=== PATIENT | female | born 1950 | race Two or more races ===

== ENCOUNTER → 2019-02-09 | Outpatient (CLI) | payer BC ==
[2015-10-03 12:03] VITALS: BP 145/74
[~2019-02-09] MED LIST: CHOL2000 PO; CIPR250T PO; ESTR0.45 PO; EXEN10PE3 SQ; HYDR115S2 PO; INSU100V8 SQ; INSU200I SQ; LOSA25TA54 PO; METF500T16 PO; MIRA25TA PO
--- NOTE | 2019-02-09 11:47 | RAD ---
MR of the right elbow HISTORY: Left lateral elbow pain for 2 months. No known injury. TECHNIQUE: Routine multiplanar sequences are obtained. FINDINGS: Biceps and brachialis tendons are intact. Triceps tendon attachment is intact. The common flexor tendon demonstrates mild tendinosis. Ulnar collateral ligament is intact. Partial tear of the common extensor tendon, involving roughly 70% of the footplate attachment. The proximal lateral collateral ligament complex is also poorly defined, likely torn. No aggressive bone destruction. No acute fracture. No significant joint effusion. Ulnar nerve appears unremarkable. IMPRESSION: 1. High-grade tear of the common extensor tendon attachment, also appears to involve proximal lateral collateral ligament complex. 2. Mild common flexor tendinosis. Electronically signed by: John Alfred MD (02/09/2019 11:44 AM) [id number]
== END | disposition home or self-care (01) ==
LOC: MRI 09:44
PROVIDERS: ATTEND Orthopaedic Surgery
DX: S56.512A Strain of other extensor muscle, fascia and tendon at forearm level, left arm, initial encounter (principal); M77.8 Other enthesopathies, not elsewhere classified; X58.XXXA Exposure to other specified factors, initial encounter; Y93.89 Activity, other specified; Y92.89 Other specified places as the place of occurrence of the external cause; Y99.8 Other external cause status
CPT/HCPCS: 73221

== ENCOUNTER 2019-04-15 14:43 | Emergency (ER) | payer BC ==
[~2019-04-15] VITALS: Ht 157.5 cm; Wt 72.6 kg
[2019-04-15 16:00] VITALS: BP 197/85
[2019-04-15] MEDS ORDERED: HYDROcodone/APAP 5/325MG 1 TAB TABLET PO ONE (16:00)
[2019-04-15] MEDS ORDERED: ONDANSETRON ODT 4 MG TAB.RAPDIS. PO ONE (16:00)
--- NOTE | 2019-04-15 16:04 | PHYS DOC ---
Past Medical History Past Medical History: Diabetes-Type I, Hypertension Past Surgical History: Hysterectomy Additional Past Surgical Histo: tubal ligation, adwoa breast reconstraction Alcohol Use: Rarely Drug Use: None Adult General Chief Complaint Chief Complaint: FINGER INJURY HPI HPI Patient is a 69 year old female presents to the ED complaining of finger injury times one day ago. Patient states she was pulling a heavy door shut and accidentally smashed her second, third and fourth fingers. Describes the pain as sharp. Rates pain as 8 out of 10. She has pain with flexion. Denies nailbed injury, laceration, weakness, paresthesias, chest pain or shortness of breath. Review of Systems Review of Systems Constitutional: Denies fever or chills [] Eyes: Denies change in visual acuity, redness, or eye pain [] HENT: Denies nasal congestion or sore throat [] Respiratory: Denies cough or shortness of breath [] Cardiovascular: No additional information not addressed in HPI [] GI: Denies abdominal pain, nausea, vomiting, bloody stools or diarrhea [] : Denies dysuria or hematuria [] Musculoskeletal: Complains of finger pain. Denies back pain. Integument: Denies rash or skin lesions [] Neurologic: Denies headache, focal weakness or sensory changes [] All other systems were reviewed and found to be within normal limits, except as documented in this note. Current Medications Current Medications Current Medications Medications (Trade) Dose Ordered Sig/Lea Start Time Stop Time Status Last Admin Dose Admin Acetaminophen/ Hydrocodone Bitart (Lortab 5/325) 1 tab 1X ONCE 04/15/19 16:00 04/15/19 16:04 DC 04/15/19 16:17 1 TAB Ondansetron HCl (Zofran Odt) 4 mg 1X ONCE 04/15/19 16:00 04/15/19 16:04 DC 04/15/19 16:17 4 MG Allergies Allergies Allergies Coded Allergies Type Severity Reaction Last Updated Verified No Known Drug Allergies 10/01/15 No Physical Exam Physical Exam Constitutional: Well developed, well nourished, no acute distress, non-toxic appearance. [] HENT: Normocephalic, atraumatic Neck: Normal range of motion, no tenderness, supple, no stridor. [] Cardiovascular:Heart rate regular rhythm, no murmur [] Lungs & Thorax: Bilateral breath sounds clear to auscultation [] Skin: Warm, dry, no erythema, no rash. [] Back: No tenderness, no CVA tenderness. [] Extremities: mild 2nd, 3rd and 4th finger tenderness, no cyanosis, no clubbing, ROM intact, no edema. [] Neurologic: Alert and oriented X 3, normal motor function, normal sensory function, no focal deficits noted. [] Psychologic: Affect normal, judgement normal, mood normal. [] Current Patient Data Vital Signs Vital Signs Date Time Temp Pulse Resp B/P (MAP) Pulse Ox O2 Delivery O2 Flow Rate FiO2 04/15/19 16:17 14 96 Room Air 04/15/19 16:00 97.8 72 197/85 (122) 97.8 EKG EKG [] Radiology/Procedures Radiology/Procedures PROCEDURE: HAND RIGHT 3V 3 view study of the right hand Clinical indications: Crushing injury to second and third and fourth digits. FINDINGS: No acute fracture or dislocation or lytic process is evident. IMPRESSION: No acute fracture.[] Course & Med Decision Making Course & Med Decision Making Pertinent Labs and Imaging studies reviewed. (See chart for details) [] Dragon Disclaimer Dragon Disclaimer This electronic medical record was generated, in whole or in part, using a voice recognition dictation system. Departure Departure Impression: Primary Impression: Finger contusion Disposition: 01 HOME, SELF-CARE Condition: IMPROVED Referrals: SILVINO OWUSU (PCP) Patient Instructions: Hand Contusion SABRINA LILLY April 15, 2019 16:04
--- NOTE | 2019-04-15 16:46 | RAD ---
3 view study of the right hand Clinical indications: Crushing injury to second and third and fourth digits. FINDINGS: No acute fracture or dislocation or lytic process is evident. IMPRESSION: No acute fracture. Electronically signed by: Matty Hoover MD (04/15/2019 4:43 PM) [id number]
== END 2019-04-15 16:53 | disposition home or self-care (01) ==
LOC: ER 14:43
DX: S60.021A Contusion of right index finger without damage to nail, initial encounter (principal); S60.031A Contusion of right middle finger without damage to nail, initial encounter; S60.041A Contusion of right ring finger without damage to nail, initial encounter; E10.9 Type 1 diabetes mellitus without complications; I10 Essential (primary) hypertension; W23.0XXA Caught, crushed, jammed, or pinched between moving objects, initial encounter; Y93.89 Activity, other specified; Y92.89 Other specified places as the place of occurrence of the external cause; Y99.8 Other external cause status
CPT/HCPCS: 73130; 99284; Q0162